=== PATIENT | female | born 1970 | race Caucasian/White ===

== ENCOUNTER → 2016-11-18 | Outpatient (CLI) | payer BC | LOC: ULTRA 10:38 | DX: E04.2 Nontoxic multinodular goiter (principal); E06.3 Autoimmune thyroiditis; E03.9 Hypothyroidism, unspecified; J30.2 Other seasonal allergic rhinitis; Z98.890 Other specified postprocedural states ==

== ENCOUNTER → 2018-11-23 | Outpatient (CLI) | payer BC | LOC: ULTRA 10:51 | DX: E03.9 Hypothyroidism, unspecified (principal); E06.3 Autoimmune thyroiditis; E04.2 Nontoxic multinodular goiter; J30.2 Other seasonal allergic rhinitis; Z98.890 Other specified postprocedural states ==

== ENCOUNTER → 2020-12-04 | Outpatient (CLI) | payer BC, OTHER | LOC: ULTRA 12:24 | PROVIDERS: ATTEND Otolaryngology Plastic Surgery within the Head & Neck | DX: E04.2 Nontoxic multinodular goiter (principal) ==